=== PATIENT | female | born 1955 | race Caucasian/White ===

== ENCOUNTER → 2017-07-29 | Outpatient (CLI) | payer BC ==
[~2017-07-29] MED LIST: AMOX-559 PO; ATOR40TA24 PO; ATOR40TA69 PO; AZI250 PO; AZIT500T47 PO; BENA1TAB49 PO; BENA1TAB58 PO; CHOL200025 PO; CHOL200074 PO; DOCU-416 PO; GUAI120L3 PO; HYDR-6015 PO; HYDR473S4 PO; KLOR CON PO; LACT1CAP74 PO; LEV100 PO; LEVO-3 PO; LEVO75TA73 PO; LOSA-51 PO; METF-420 PO; MULT-770 PO; OXYGENHOME INH; PRED20TA6 PO; ROBC PEG; [UNRECOGNIZED DRUG - CODE] PO
--- NOTE | 2017-07-29 12:11 | RADIOLOGY IMAGING REPORT ---
FACILITY: [facility] PATIENT NAME: JAY OSBORN : [id number] MR: [id number] V: [id number] EXAM DATE: ORDERING PHYSICIAN: REINA AMARO TECHNOLOGIST: Elaine Bolivar PROCEDURE:BILATERAL DIGITAL SCREENING MAMMOGRAM WITH CAD ASSISTED INTERPRETATION & 3D TOMOSYNTHESIS COMPARISON:Prior mammograms 07/28/16, 07/26/15, 07/24/14, 07/29/13, 01/02/12. INDICATIONS:Screening FINDINGS: Moderately heterogeneous fibroglandular tissue is seen throughout the breasts. Most of the parenchymal pattern has remained stable allowing for difference in mammographic technique & patient positioning. There is a focal asymmetry seen just inferior to the mid nipple line approximately 6cm from the nipple for which spot compression view is recommended. DIAGNOSTIC CATEGORY 0--INCOMPLETE: NEED ADDITIONAL IMAGING EVALUATION. RECOMMENDATIONS: ADDITIONAL MAMMOGRAPHIC VIEWS REQUIRED: LEFT BREAST. IMPRESSION: BIRADS 0: Incomplete Additional views Left breast recommended as described. Dictated by: Renee Coyne M.D. on 07/29/2017 at 11:09 Transcribed by: JACQUI on 07/29/2017 at 11:23 Approved by: Renee Coyne M.D. on 07/29/2017 at 12:10 [facility]
== END ==
LOC: MAMO 00:52
PROVIDERS: ATTEND Nurse Practitioner Family
DX: Z12.31 Encounter for screening mammogram for malignant neoplasm of breast (principal); R92.8 Other abnormal and inconclusive findings on diagnostic imaging of breast
CPT/HCPCS: 77063; 77067

== ENCOUNTER → 2017-07-31 | Outpatient (CLI) | payer BC ==
--- NOTE | 2017-07-31 14:43 | RADIOLOGY IMAGING REPORT ---
[place] [facility] [place] NAME: JAY OSBORN : [id number] MR: [id number] V: [id number] EXAM DATE: ORDERING PHYSICIAN: REINA AMARO TECHNOLOGIST: Elaine Bolivar PROCEDURE:LEFT DIGITAL DIAGNOSTIC MAMMOGRAM WITH CAD ASSISTED INTERPRETATION & 3D TOMOSYNTHESIS COMPARISON:Prior mammograms 07/29/17, 07/28/16, 07/26/15, 07/24/14, 07/29/13, 01/02/12. INDICATIONS:further evaluation FINDINGS: The focal area of increased density just inferior to mid nipple line approximately 6cm from the nipple on the most recent Left MLO view appeared freely compressible and apparently represented summation shadow. There is no demonstration of malignant appearing mass, or calcification left breast. DIAGNOSTIC CATEGORY 2--BENIGN FINDING. RECOMMENDATIONS: ROUTINE MAMMOGRAM AND CLINICAL EVALUATION. IMPRESSION: BIRADS 2: Benign finding No significant abnormality of the Left breast is seen. Dictated by: Renee Coyne M.D. on 07/31/2017 at 12:39 Transcribed by: JACQUI on 07/31/2017 at 13:36 Approved by: Renee Coyne M.D. on 07/31/2017 at 14:42 [facility]
== END ==
LOC: MAMO 03:03
PROVIDERS: ATTEND Nurse Practitioner Family
DX: R92.8 Other abnormal and inconclusive findings on diagnostic imaging of breast (principal)
CPT/HCPCS: 77065

== ENCOUNTER → 2017-11-12 | Outpatient (CLI) | payer BC ==
[~2017-11-12] MED LIST changes: +METF-421 PO
--- NOTE | 2017-11-12 11:25 | RADIOLOGY IMAGING REPORT ---
FACILITY: [facility] PATIENT NAME: Neyda Benitez : 1955 MR: [id number] V: [id number] EXAM DATE: ORDERING PHYSICIAN: REINA AMARO TECHNOLOGIST: Location: [facility] [place] Patient: Neyda Benitez : 1955 Visit/Account:[id number] Date of Sevice: 11/12/2017 Exam type: FOOT 3 VIEW RIGHT History: Right foot pain on plantar side of foot. Pain worse around first and second MTP joint. Fle nir and extending toes Comparison: March 06, 2016. Left foot Findings: Three views of the right foot were submitted. Moderate degenerative changes are seen at the talonavi cular joint and the navicular/medial cuneiform articulation.. Moderate degenerative changes also not ed at the fifth tarsometatarsal articulation with the marginal spurring also noted at the base of the right fifth metatarsal. There are moderate degenerative changes seen at the right first metatarsoph alangeal joint. There is moderate size calcaneal spur and osteophyte at the insertion of the Mallard s tendon. No evidence of acute fracture identified IMPRESSION: 1. 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
== END ==
LOC: RAD 08:56
PROVIDERS: ATTEND Nurse Practitioner Family
DX: M19.071 Primary osteoarthritis, right ankle and foot (principal); M77.31 Calcaneal spur, right foot

== ENCOUNTER → 2018-08-02 | Outpatient (CLI) | payer BC ==
[~2018-08-02] MED LIST changes: -METF-421 PO; +METF-452 PO
--- NOTE | 2018-08-05 08:23 | RADIOLOGY IMAGING REPORT ---
[place] [facility] [place]: JAY OSBORN : [id number] MR: [id number] V: [id number] EXAM DATE: [id number] ORDERING PHYSICIAN: REINA AMARO TECHNOLOGIST: Elaine Bolivar PROCEDURE:BILATERAL DIGITAL SCREENING MAMMOGRAM WITH CAD ASSISTED INTERPRETATION & 3D TOMOSYNTHESIS COMPARISON:None. INDICATIONS:screening FINDINGS: There are scattered areas of fibroglandular density throughout the breasts. The parenchymal pattern has remained stable allowing for difference in mammographic technique & patient positioning. DIAGNOSTIC CATEGORY 1--NEGATIVE. RECOMMENDATIONS: ROUTINE MAMMOGRAM AND CLINICAL EVALUATION. IMPRESSION: BIRADS 1: Negative. No significant abnormality is seen. Dictated by: Renee Coyne M.D. on 08/03/2018 at 15:49 Transcribed by: JACQUI on 08/04/2018 at 8:26 Approved by: Renee Coyne M.D. on 08/05/2018 at 8:22 [facility]
== END ==
LOC: MAMO 00:18
PROVIDERS: ATTEND Nurse Practitioner Family
DX: Z12.31 Encounter for screening mammogram for malignant neoplasm of breast (principal); Z80.3 Family history of malignant neoplasm of breast
CPT/HCPCS: 77063; 77067